=== PATIENT | female | born 1945 | race Caucasian/White ===

== ENCOUNTER 2018-08-30 13:25 | Inpatient (IN) | payer MEDICARE ==
[~2018-08-30] VITALS: Ht 162.6 cm; Wt 99.8 kg
--- NOTE | 2018-08-30 14:20 | RAD ---
EXAM: Chest, single view. HISTORY: Slurred speech. COMPARISON: None. FINDINGS: A frontal view of the chest is obtained. There is no infiltrate, pleural effusion or pneumothorax. The cardiac silhouette is normal in size for portable technique. IMPRESSION: No acute pulmonary finding. Electronically signed by: Trice Ruvalcaba MD (08/30/2018 2:17 PM) [id number]
--- NOTE | 2018-08-30 14:28 | RAD ---
CT CODE STROKE HEAD WO dated 08/30/2018 1:51 PM Indication: Slurred speech, possible CVA code stroke. Comparison: No comparison is available. Technique: Contiguous axial imaging of the head was performed from skull base to vertex. One or more of the following individualized dose reduction techniques were utilized for this examination: 1. Automated exposure control 2. Adjustment of the mA and/or kV according to patient size 3. Use of iterative reconstruction technique Findings: Ventricles and sulci are mildly prominent for age. No midline shift or mass effect. Moderate patchy low density in the deep/subcortical periventricular white matter. No hemorrhage or extra-axial collection. Posterior fossa and brainstem unremarkable. No hyperdense vessels. Visualized paranasal sinuses and mastoid air cells are clear. No apparent calvarial abnormality. IMPRESSION: 1. No evidence of acute cranial hemorrhage or mass. 2. Moderate patchy low density in the deep/subcortical periventricular white matter, nonspecific but likely related to chronic small vessel ischemic disease. Superimposed acute on chronic ischemia cannot be excluded based on this exam. If there is persistent clinical concern for evolving CVA, MRI would better evaluate. 3. Mild atrophy for age. Results discussed with ER physician at approximately to 2:12 PM on the date of exam. Electronically signed by: Klaus Smith MD (08/30/2018 2:26 PM) [id number]
[2018-08-30] MEDS ORDERED: NALOXONE 2 MG in IV DEXTROSE 5% 500 ML IV ONE (14:45)
[2018-08-30] MEDS ORDERED: NALOXONE 0.4 MG/ML VIAL. IV ONE (14:45)
[2018-08-30] MEDS ORDERED: ONDANSETRON PF 4 MG/2 ML VIAL. IV PRN (14:45)
--- NOTE | 2018-08-30 14:52 | PHYS DOC ---
Past Medical History Past Medical History: Hypertension Past Surgical History: Knee Replacement, Tonsillectomy Additional Past Surgical Histo: left knee Alcohol Use: Rarely Drug Use: None Adult General Chief Complaint Chief Complaint: NEURO SYMPTOMS/DEFICITS HPI HPI 72-year-old female who's had a recent hip replacement surgery presents approximately 30 minutes after the development of left-sided facial droop, slurred speech and confusion. Family states that they were out shopping and the legends when she suddenly developed incomprehensible speech, trouble unbuckling her seatbelt and difficulty getting in and out of the car. Family states that this is very unusual for her she's never had anything like this in the past. On arrival to the emergency Department family states that her symptoms had markedly improved. Patient does admit to a mild headache but otherwise has not been feeling ill. She's not had any fever chills or sweats. No upper respiratory type symptoms.[] Review of Systems Review of Systems Constitutional: Denies fever or chills [] Eyes: Denies change in visual acuity, redness, or eye pain [] HENT: Denies nasal congestion or sore throat [] Respiratory: Denies cough or shortness of breath [] Cardiovascular: No additional information not addressed in HPI [] GI: Denies abdominal pain, nausea, vomiting, bloody stools or diarrhea [] : Denies dysuria or hematuria [] Musculoskeletal: Denies back pain or joint pain [] Integument: Denies rash or skin lesions [] Neurologic: Per history of present illness[] Endocrine: Denies polyuria or polydipsia [] All other systems were reviewed and found to be within normal limits, except as documented in this note. Current Medications Current Medications Allergies Allergies Allergies Coded Allergies Type Severity Reaction Last Updated Verified No Known Drug Allergies 08/30/18 No Physical Exam Physical Exam Constitutional: Well developed, well nourished, no acute distress, non-toxic appearance. [] HENT: Normocephalic, atraumatic, bilateral external ears normal, oropharynx moist, no oral exudates, nose normal. [] Eyes: PERRLA, EOMI, conjunctiva normal, no discharge. [] Neck: Normal range of motion, no tenderness, supple, no stridor. [] Cardiovascular:Heart rate regular rhythm, no murmur [] Lungs & Thorax: Bilateral breath sounds clear to auscultation [] Abdomen: Bowel sounds normal, soft, no tenderness, no masses, no pulsatile masses. [] Skin: Warm, dry, no erythema, no rash. [] Back: No tenderness, no CVA tenderness. [] Extremities: No tenderness, no cyanosis, no clubbing, ROM intact, no edema. [] Neurologic: Alert and oriented X 3, normal motor function, normal sensory function, no focal deficits noted. [] Psychologic: Affect normal, judgement normal, mood normal. NIH stroke scale equals 1 for very mild facial asymmetry[] Current Patient Data Vital Signs Vital Signs Date Time Temp Pulse Resp B/P (MAP) Pulse Ox O2 Delivery O2 Flow Rate FiO2 08/30/18 13:40 97.6 69 18 188/99 (128) 97 Room Air 97.6 Lab Values Laboratory Tests Test 08/30/18 13:49 08/30/18 14:30 Glucose (Fingerstick) 96 mg/dL (70-99) White Blood Count 7.7 x10^3/uL (4.0-11.0) Red Blood Count 4.13 x10^6/uL (3.50-5.40) Hemoglobin 12.5 g/dL (12.0-15.5) Hematocrit 37.9 % (36.0-47.0) Mean Corpuscular Volume 92 fL (79-100) Mean Corpuscular Hemoglobin 30 pg (25-35) Mean Corpuscular Hemoglobin Concent 33 g/dL (31-37) Red Cell Distribution Width 14.0 % (11.5-14.5) Platelet Count 331 x10^3/uL (140-400) Prothrombin Time 15.8 SEC (11.7-14.0) H Prothrombin Time INR 1.3 (0.8-1.1) H PTT 32 SEC (24-38) Sodium Level 138 mmol/L (136-145) Potassium Level 3.4 mmol/L (3.5-5.1) L Chloride Level 98 mmol/L (98-107) Carbon Dioxide Level 26 mmol/L (21-32) Anion Gap 14 (6-14) Blood Urea Nitrogen 17 mg/dL (7-20) Creatinine 1.1 mg/dL (0.6-1.0) H Estimated GFR (Cockcroft-Gault) 49.1 Glucose Level 101 mg/dL (70-99) H Calcium Level 9.8 mg/dL (8.5-10.1) Triglycerides Level 133 mg/dL (0-150) Cholesterol Level 214 mg/dL (0-200) H LDL Cholesterol, Calculated 136 mg/dL (0-100) H VLDL Cholesterol, Calculated 27 mg/dL (0-40) Non-HDL Cholesterol Calculated 163 mg/dL (0-129) H HDL Cholesterol 51 mg/dL (40-60) Cholesterol/HDL Ratio 4.2 Laboratory Tests 08/30/18 14:30 Laboratory Tests 08/30/18 14:30 EKG EKG [EKG: Normal sinus rhythm rate of [address]-T changes] Radiology/Procedures Radiology/Procedures []PROCEDURE: PORTABLE CHEST 1V EXAM: Chest, single view. HISTORY: Slurred speech. COMPARISON: None. FINDINGS: A frontal view of the chest is obtained. There is no infiltrate, pleural effusion or pneumothorax. The cardiac silhouette is normal in size for portable technique. IMPRESSION: No acute pulmonary finding. Impressions: PROCEDURE: CT CODE STROKE HEAD WO CT CODE STROKE HEAD WO dated 08/30/2018 1:51 PM Indication: Slurred speech, possible CVA code stroke. Comparison: No comparison is available. Technique: Contiguous axial imaging of the head was performed from skull base to vertex. One or more of the following individualized dose reduction techniques were utilized for this examination: 1. Automated exposure control 2. Adjustment of the mA and/or kV according to patient size 3. Use of iterative reconstruction technique Findings: Ventricles and sulci are mildly prominent for age. No midline shift or mass effect. Moderate patchy low density in the deep/subcortical periventricular white matter. No hemorrhage or extra-axial collection. Posterior fossa and brainstem unremarkable. No hyperdense vessels. Visualized paranasal sinuses and mastoid air cells are clear. No apparent calvarial abnormality. IMPRESSION: 1. No evidence of acute cranial hemorrhage or mass. 2. Moderate patchy low density in the deep/subcortical periventricular white matter, nonspecific but likely related to chronic small vessel ischemic disease. Superimposed acute on chronic ischemia cannot be excluded based on this exam. If there is persistent clinical concern for evolving CVA, MRI would better evaluate. 3. Mild atrophy for age. Course & Med Decision Making Course & Med Decision Making Pertinent Labs and Imaging studies reviewed. (See chart for details) [ED course: Evaluation reveals a 72-year-old female with a likely TIA. Her symptoms had essentially resolved however given the abrupt onset and the severity of her symptoms I feel is best for the patient to be admitted for further workup. I spoke with the hospitalist agreed. We will consult neurology as well with the patient's in the hospital.] Dragon Disclaimer Dragon Disclaimer This electronic medical record was generated, in whole or in part, using a voice recognition dictation system. Departure Departure Impression: Primary Impression: Transient ischemic attack (TIA) Disposition: 09 ADMITTED INPATIENT Admitting Physician: Faith Hughes Condition: STABLE Referrals: UNKNOWN PCP NAME (PCP) SAUNDRA ROBERT DO Aug 30, 2018 14:52
[2018-08-30] MEDS ORDERED: LABETALOL 20 MG/4 ML DISP.SYRIN. IVP PRN (15:00)
[2018-08-30] MEDS ORDERED: ACETAMINOPHEN 500 MG TABLET PO PRN (15:00)
[2018-08-30] MEDS ORDERED: ASPIRIN CHEWABLE 81 MG TABLET. PO ONE (15:00)
[2018-08-30] MEDS ORDERED: traMADol 50 MG TABLET PO PRN (15:00)
--- NOTE | 2018-08-30 15:00 | PDOC1 ---
History and Physical Date of Admission Date of Admission DATE: 08/30/18 TIME: 14:55 Identification/Chief Complaint Chief Complaint confused, slurred, lasted 15 mins Source Source: Caregiver, Chart review, Patient History of Present Illness History of Present Illness 72 white F, shopping at [employer], then dtr noticed, confusion, transient slurred , maybe a slight droop/uneven smile, She could not figure out how to get in car or fasten seatbelt, By the time arrival, sxs resolving, NIH 1,. CT head and labs ok, VS high side bp, takes meds at home along with synthroid NO vices, NKDA Only sx is hip sx took asa x 30 days, none now Admitted for tIA Essential tremors takes propanolol BID Hx CVA in parents Past Medical History Cardiovascular: HTN, Hyperlipidemia CENTRAL NERVOUS SYSTEM: Other (ETs) Endocrine: Hypothyroidism Past Surgical History Past Surgical History: Total hip replacement Family History Family History: Other (CVA) Social History Smoke: No ALCOHOL: none Drugs: None Current Problem List Problem List Problems Medical Problems: (1) Transient ischemic attack (TIA) Status: Acute Current Medications Current Medications Current Medications Naloxone HCl (Narcan) 2 mg 1X ONCE IV ; Start 08/30/18 at 14:45; Stop 08/30/18 at 14:53; Status DC Naloxone HCl 2 mg/ Dextrose 502 ml @ 0 mls/hr 1X ONCE IV ; Start 08/30/18 at 14 :45; Stop 08/30/18 at 14:53; Status DC Ondansetron HCl (Zofran) 4 mg PRN Q8HRS PRN IV NAUSEA/VOMITING; Start 08/30/18 at 14:45; Stop 08/31/18 at 14:44 Acetaminophen (Tylenol) 500 mg PRN Q6HRS PRN PO MILD PAIN / TEMP; Start at 15:00; Status UNV Aspirin (Ecotrin) 325 mg DAILYWBKFT PO ; Start 08/31/18 at 08:00; Status UNV Aspirin (Children'S Aspirin) 324 mg 1X ONCE PO ; Start 08/30/18 at 15:00; Stop 08/30/18 at 15:01; Status UNV Labetalol HCl (Normodyne Iv Push) 10 mg PRN Q2HR PRN IVP HYPERTENSION, SEE COMMENTS; Start 08/30/18 at 15:00; Status UNV Losartan Potassium (Cozaar) 100 mg DAILY PO ; Start 08/31/18 at 09:00; Status UNV Celecoxib (CeleBREX) 200 mg DAILY PO ; Start 08/31/18 at 09:00; Status UNV Propranolol HCl (Inderal) 40 mg BID PO ; Start 08/30/18 at 21:00; Status UNV Tramadol HCl (Ultram) 50 mg PRN Q6HRS PRN PO PAIN; Start 08/30/18 at 15:00; Status UNV Levothyroxine Sodium (Synthroid) 125 mcg DAILY06 PO ; Start 08/31/18 at 06:00; Status UNV Allergies Allergies: Coded Allergies: No Known Drug Allergies (Unverified , 08/30/18) ROS Review of System neg 14 pt - all else per HPI Physical Exam General: Alert, Oriented X3, Cooperative, No acute distress, Other (some chronic essential tremors visible, left arm) HEENT: Atraumatic, PERRLA Lungs: Clear to auscultation, Normal air movement Heart: S1S2, RRR, no gallops, no murmurs Cardiovascular: S1 Breasts: Normal, Rt breast nml w/o mass, Lt breast nml w/o mass, Nipples normal Abdomen: Normal bowel sounds, Soft, No tenderness, No hepatosplenomegaly, No masses Rectal Exam: not examined PELVIC: Nml ext genitalia Extremities: No clubbing, No cyanosis, No edema, Normal pulses, No tenderness/ swelling Skin: No rashes, No breakdown, No significant lesion Neuro: Normal gait, Normal speech, Strength at 5/5 X4 ext, Normal tone, Sensation intact, Cranial nerves 3-12 NL, Reflexes 2+ Psych/Mental Status: Mental status NL, Mood NL Vitals Vitals Vital Signs Date Time Temp Pulse Resp B/P (MAP) Pulse Ox O2 Delivery O2 Flow Rate FiO2 08/30/18 13:40 97.6 69 18 188/99 (128) 97 Room Air 97.6 Labs Labs Laboratory Tests Test 08/30/18 13:49 Glucose (Fingerstick) 96 mg/dL (70-99) Laboratory Tests Test 08/30/18 13:49 Glucose (Fingerstick) 96 mg/dL (70-99) VTE Prophylaxis Ordered VTE Prophylaxis Devices: Yes VTE Pharmacological Prophylaxi: Yes Assessment/Plan Assessment/Plan Looks like TIA based on symtomatology and manifestation, NIH 1, neuro exam almost normal BP high. See below: A/P: TIA Accel HTN Hypothyrodism, chronic ETs PLAN: NEuro, consult MRI brain Check lipids Home meds reconciled Labetolol prn Allow permissive hTN Seen at ER dw family FULL CODE ASA now then daily JOLIE MICHELE MD Aug 30, 2018 15:00
[2018-08-30 15:06] LABS: HEMATOCRIT 37.9 % (36.0-47.0); HEMOGLOBIN 12.5 g/dL (12.0-15.5); RED BLOOD COUNT 4.13 x10^6/uL (3.50-5.40); WHITE BLOOD COUNT 7.7 x10^3/uL (4.0-11.0)
[2018-08-30 15:15] LABS: PROTHROMBIN TIME PATIENT 15.8 SEC (11.7-14.0)
[2018-08-30 15:17] LABS: CALCIUM 9.8 mg/dL (8.5-10.1); CREATININE 1.1 mg/dL (0.6-1.0); GFR 49.1; POTASSIUM 3.4 mmol/L (3.5-5.1)
[2018-08-30 15:22] LABS: CHOLESTEROL/HDL RATIO 4.2
--- NOTE | 2018-08-30 16:11 | NUR ---
completed NIH at bedside with Hannah YO Addendum: 08/30/18 at 1629 by JESUS GUSTAFSON RN Amended: Links added.
[2018-08-30 17:00] VITALS: BP 176/74
--- NOTE | 2018-08-30 17:30 | RAD ---
EXAM: Brain MRI without contrast. HISTORY: Slurred speech. Confusion. TECHNIQUE: Multiplanar, multisequence magnetic resonance imaging of the brain was performed without contrast. COMPARISON: CT obtained on the same date. FINDINGS: There is no restricted diffusion to suggest acute or subacute infarction. There is no susceptibility effect to suggest hemorrhage. There is no mass effect or midline shift. There is no hydrocephalus. There are extensive scattered focal and confluent areas of signal change throughout the cerebral white matter, most commonly due to chronic small vessel disease. There is cerebral volume loss. There is paranasal sinus mucosal thickening and there are multiple small maxillary sinus mucous retention cysts. There is a tiny amount of fluid within mastoid air cells. There are normal flow voids within the cerebral vessels. No calvarial lesion is seen. IMPRESSION: 1. No acute intracranial finding. 2. Extensive areas of signal change throughout the cerebral white matter, a nonspecific finding most commonly due to chronic small vessel disease in patients of this age. 3. Cerebral volume loss. Electronically signed by: Trice Ruvalcaba MD (08/30/2018 5:27 PM) [id number]
[2018-08-30 19:19] VITALS: BP 142/73
--- NOTE | 2018-08-30 19:42 | PDOC2 ---
NEUROLOGY CONSULT Date of Admission Date of Admission DATE: 08/30/18 TIME: 19:37 Reason for Consult Reason for Consult: IMPRESSION: CVA syndrome. TIA. Cognitive function impairment. left side facial drooping. Slurred speech. Confusion. UTI. Severe thoracic esophageal stricture, neoplastic? Proteinuria. DM. HTN. Hypothyroidism. Cardiomegaly. Emphysema. Obesity. RECOMMENDATIONS/PLAN: HISTORY OF THE PRESENT ILLNESS: 72 white F, shopping at [employer], then dtr noticed, confusion, transient slurred , maybe a slight droop/uneven smile, She could not figure out how to get in car or fasten seatbelt, By the time arrival, sxs resolving, NIH 1,. CT head and labs ok, VS high side bp, takes meds at home along with synthroid NO vices, NKDA Only sx is hip sx took asa x 30 days, none now Admitted for tIA Essential tremors takes propanolol BID Hx CVA in parents Past Medical History Cardiovascular: HTN, Hyperlipidemia CENTRAL NERVOUS SYSTEM: Other (ETs) Endocrine: Hypothyroidism Past Surgical History Past Surgical History: Total hip replacement Family History Family History: Other (CVA) Social History Smoke: No ALCOHOL: none Drugs: None Current Problem List Problem List Problems Medical Problems: (1) Transient ischemic attack (TIA) Status: Acute PAST MEDICAL HISTORY: Please see above. PAST SURGERY HISTORY: Pacemaker Placement, S/P CABG, Tonsillectomy, Appendectomy , Cholecystectomy, Hysterectomy, Hernia Repair, Neck, Shoulder, Knee surgery, No major surgery recently. ALLERGY: NKDA Unknown MEDICATIONS: Refer to [facility] FAMILY HISTORY: HTN, HLD, DM, CAD, PD, Dementia, Non contributory. SOCIAL HISTORY: Lives alone. Lives in senior care. Denies smoking, drinking, and illicit drug use. He She smokes pack of cigarettes a day for years. He She drinks OZ alcohol a day for years. REVIEW OF SYSTEMS: Constitutional: No malnutrition, weight loss, cachexia. Head: No traumatic brain or head injury. Skin: No edema, or rash. Ear: No infection, tinnitus. Eyes: No vision loss or color blindness. Nose: No bleeding or purulent discharges. Hearing: No hearing decrease. Neck: No injury. Breast: No history of cancer, masses,or discharges. Cardiac: No VT, arrhythmia,claudication, CAD, s/p CABG, AFib, Pacemaker Placement, HTN, HLD. Pulmonary: No pneumonia, COPD. GI: No GI ulcer, GI bleeding, GERD. Urinary/genital: No dysuria, hematuria, incontinence, urinary retention, UTI. Endocrinologic: No cousin face, craniofacial dysmorphism, polydactyly, goiter, Diabetes Mellitus, hypothyroidism, obesity, morbid obesity. Skeletomuscular: No muscular atrophy, deformity, Generalized weakness. Neurological: see HP. Psychiatric: Denies drug use/abuse. Otherwise, not [id number] review of systems. PHYSICAL EXAMINATION: General appearance is in no acute distress. HEENT: Normocephalic and nontraumatic. Eyes, nose, ears, and throat are unremarkable. Neck is supple. No lymphadenopathy. No bruits are heard over the carotid artery. No crepitus. Cardiovascular: S1, S2, regular rate and rhythm. Pulmonary: Clear to auscultation bilaterally. Abdomen: Bowel sounds are positive. Abdomen is soft, nontender, and nondistended. Extremities: No rash, lesions, or edema. No restriction of range of motion NEUROLOGICAL EXAMINATION: Alert Oriented to time, place and person. PERRL. EOMI. CN: no focal findings. Muscle tone: within normal. Muscle strength: 5 DTR: 2 Plantar reflex: Flexor/Neutral response bilaterally Gait: not examined in bed. At baseline normal. Sensory exam: no abnormal findings. No cerebellar signs elicited. F-T-N test accurate. Current Medications Current Medications Current Medications Naloxone HCl (Narcan) 2 mg 1X ONCE IV ; Start 08/30/18 at 14:45; Stop 08/30/18 at 14:53; Status DC Naloxone HCl 2 mg/ Dextrose 502 ml @ 0 mls/hr 1X ONCE IV ; Start 08/30/18 at 14 :45; Stop 08/30/18 at 14:53; Status DC Ondansetron HCl (Zofran) 4 mg PRN Q8HRS PRN IV NAUSEA/VOMITING; Start 08/30/18 at 14:45; Stop 08/31/18 at 14:44 Acetaminophen (Tylenol) 500 mg PRN Q6HRS PRN PO MILD PAIN / TEMP; Start at 15:00 Aspirin (Ecotrin) 325 mg DAILYWBKFT PO ; Start 08/31/18 at 08:00 Aspirin (Children'S Aspirin) 324 mg 1X ONCE PO Last administered on 08/30/18at 15:00; Start 08/30/18 at 15:00; Stop 08/30/18 at 15:01; Status DC Labetalol HCl (Normodyne Iv Push) 10 mg PRN Q2HR PRN IVP HYPERTENSION, SEE COMMENTS; Start 08/30/18 at 15:00 Losartan Potassium (Cozaar) 100 mg DAILY PO ; Start 08/31/18 at 09:00 Celecoxib (CeleBREX) 200 mg DAILY PO ; Start 08/31/18 at 09:00 Propranolol HCl (Inderal) 40 mg BID PO ; Start 08/30/18 at 21:00 Tramadol HCl (Ultram) 50 mg PRN Q6HRS PRN PO PAIN; Start 08/30/18 at 15:00 Levothyroxine Sodium (Synthroid) 125 mcg DAILY06 PO ; Start 08/31/18 at 06:00 Allergies Allergies: Allergies Coded Allergies Type Severity Reaction Last Updated Verified [id number] Reductase Inhibitor Adverse Reaction Severe Muscle Pain Yes ROS Review of System The patient denies any associated fevers, chills, headache, ear pain, rhinorrhea , sore throat, stiff neck, productive cough, chest pain, shortness of breath, back or flank pain, abdominal pain, nausea, vomiting, diarrhea, constipation, dysuria, rash, numbness, weakness, tingling, incontinence, difficulty ambulating, or diaphoresis. Physical Exam Physical Exam General: Well developed, well nourished, no acute distress, well appearing HEENT: Pupils equally round and reactive to light, EOMI, no discharge, normal conjunctiva Neck: Supple, no nuchal rigidity, no JVD, trachea midline, no tenderness Cardiac: RRR, no murmurs, no gallops, no rubs Chest/Lungs: CTAB, no wheeze, no rhonchi, no crackles Abdomen: soft, non-distended, no guarding, no peritoneal signs, non-tender Back: No tenderness Extremities: no edema, pulses intact, non-tender,capillary refill <3 sec bilateral upper and lower extremities, Neuro: Alert and oriented x 4, no focal deficits, normal speech Vitals Vitals: Vital Signs Date Time Temp Pulse Resp B/P (MAP) Pulse Ox O2 Delivery O2 Flow Rate FiO2 08/30/18 17:00 97.8 69 16 176/74 (108) 96 Room Air 97.8 Labs Labs Laboratory Tests Test 08/30/18 13:49 08/30/18 14:30 Glucose (Fingerstick) 96 mg/dL (70-99) White Blood Count 7.7 x10^3/uL (4.0-11.0) Red Blood Count 4.13 x10^6/uL (3.50-5.40) Hemoglobin 12.5 g/dL (12.0-15.5) Hematocrit 37.9 % (36.0-47.0) Mean Corpuscular Volume 92 fL (79-100) Mean Corpuscular Hemoglobin 30 pg (25-35) Mean Corpuscular Hemoglobin Concent 33 g/dL (31-37) Red Cell Distribution Width 14.0 % (11.5-14.5) Platelet Count 331 x10^3/uL (140-400) Prothrombin Time 15.8 SEC (11.7-14.0) Prothromb Time International Ratio 1.3 (0.8-1.1) Activated Partial Thromboplast Time 32 SEC (24-38) Sodium Level 138 mmol/L (136-145) Potassium Level 3.4 mmol/L (3.5-5.1) Chloride Level 98 mmol/L (98-107) Carbon Dioxide Level 26 mmol/L (21-32) Anion Gap 14 (6-14) Blood Urea Nitrogen 17 mg/dL (7-20) Creatinine 1.1 mg/dL (0.6-1.0) Estimated GFR (Cockcroft-Gault) 49.1 Glucose Level 101 mg/dL (70-99) Calcium Level 9.8 mg/dL (8.5-10.1) Triglycerides Level 133 mg/dL (0-150) Cholesterol Level 214 mg/dL (0-200) LDL Cholesterol, Calculated 136 mg/dL (0-100) VLDL Cholesterol, Calculated 27 mg/dL (0-40) Non-HDL Cholesterol Calculated 163 mg/dL (0-129) HDL Cholesterol 51 mg/dL (40-60) Cholesterol/HDL Ratio 4.2 Laboratory Tests Test 08/30/18 13:49 08/30/18 14:30 Glucose (Fingerstick) 96 mg/dL (70-99) White Blood Count 7.7 x10^3/uL (4.0-11.0) Red Blood Count 4.13 x10^6/uL (3.50-5.40) Hemoglobin 12.5 g/dL (12.0-15.5) Hematocrit 37.9 % (36.0-47.0) Mean Corpuscular Volume 92 fL (79-100) Mean Corpuscular Hemoglobin 30 pg (25-35) Mean Corpuscular Hemoglobin Concent 33 g/dL (31-37) Red Cell Distribution Width 14.0 % (11.5-14.5) Platelet Count 331 x10^3/uL (140-400) Prothrombin Time 15.8 SEC (11.7-14.0) Prothromb Time International Ratio 1.3 (0.8-1.1) Activated Partial Thromboplast Time 32 SEC (24-38) Sodium Level 138 mmol/L (136-145) Potassium Level 3.4 mmol/L (3.5-5.1) Chloride Level 98 mmol/L (98-107) Carbon Dioxide Level 26 mmol/L (21-32) Anion Gap 14 (6-14) Blood Urea Nitrogen 17 mg/dL (7-20) Creatinine 1.1 mg/dL (0.6-1.0) Estimated GFR (Cockcroft-Gault) 49.1 Glucose Level 101 mg/dL (70-99) Calcium Level 9.8 mg/dL (8.5-10.1) Triglycerides Level 133 mg/dL (0-150) Cholesterol Level 214 mg/dL (0-200) LDL Cholesterol, Calculated 136 mg/dL (0-100) VLDL Cholesterol, Calculated 27 mg/dL (0-40) Non-HDL Cholesterol Calculated 163 mg/dL (0-129) HDL Cholesterol 51 mg/dL (40-60) Cholesterol/HDL Ratio 4.2 EZEQUIEL REAVES MD Aug 30, 2018 19:42
--- NOTE | 2018-08-30 20:00 | PDOC2 ---
NEUROLOGY CONSULT Date of Admission Date of Admission DATE: 08/30/18 TIME: 19:47 Reason for Consult Reason for Consult: CVA syndrome. Coded stroke in ER. TIA. Cognitive function impairment. Left side facial drooping. Slurred speech. Confusion. HTN. UTI. Obesity. No evidence of acute CVA this time. RECOMMENDATIONS/PLAN: ASA daily. Lad: see orders. EEG as out patient. Carotid A US + Doppler. Echo + Bubble study. Treat medical diseases. HISTORY OF THE PRESENT ILLNESS: 72-y-old female patient was shopping at [employer], and her daughter noted that she had slurred speech with confusion, her left side of face was drooping but patient stated she had no recognition. She was thought to have a stroke. Her was brought to the ER of [facility] within 3 hours and her initial HCT was unrevealing. MRI showed no acute CVA. Her symptoms resolved after3 hours. Past Medical History Cardiovascular: HTN, Hyperlipidemia CENTRAL NERVOUS SYSTEM: Other (ETs) Endocrine: Hypothyroidism Past Surgical History Total hip replacement Family History Non contributory. . ALLERGY: Unknown MEDICATIONS: Refer to MAR SOCIAL HISTORY: Lives at home. Denies current smoking, drinking, and illicit drug use. REVIEW OF SYSTEMS: Constitutional: Obesity.. Head: No traumatic brain or head injury. Skin: No edema, or rash. Ear: No infection. Eyes: No vision loss or color blindness. Nose: No bleeding or purulent discharges. Hearing: Hearing decrease. Neck: No injury. Breast: No history of cancer, masses,or discharges. Cardiac: HTN. Pulmonary: No COPD. GI: No GI ulcer, GI bleeding. Urinary/genital: UTI. Endocrinologic: No cousin face, craniofacial dysmorphism, polydactyly. Skeletomuscular: No muscular atrophy. Neurological: see HP. Psychiatric: Denies drug use/abuse. Otherwise, not [id number] review of systems. PHYSICAL EXAMINATION: General appearance is in subacute distress. HEENT: Normocephalic and nontraumatic. Eyes, nose, ears, and throat are unremarkable. Neck is supple. No lymphadenopathy. No crepitus. Cardiovascular: S1, S2, regular rate and rhythm. Pulmonary: Clear to auscultation bilaterally. Abdomen: Bowel sounds are positive. Abdomen is soft, nontender, and nondistended. Extremities: No rash, lesions, or edema. No restriction of range of motion NEUROLOGICAL EXAMINATION: Alert Oriented to time, place and person. PERRL. EOMI. CN: no focal findings. Muscle tone: within normal. Muscle strength: 5 DTR: 2 Plantar reflex: Neutral response bilaterally Gait: not examined in bed. Sensory exam: no abnormal findings. No cerebellar signs elicited. F-T-N test accurate. Current Medications Current Medications Current Medications Naloxone HCl (Narcan) 2 mg 1X ONCE IV ; Start 08/30/18 at 14:45; Stop 08/30/18 at 14:53; Status DC Naloxone HCl 2 mg/ Dextrose 502 ml @ 0 mls/hr 1X ONCE IV ; Start 08/30/18 at 14 :45; Stop 08/30/18 at 14:53; Status DC Ondansetron HCl (Zofran) 4 mg PRN Q8HRS PRN IV NAUSEA/VOMITING; Start 08/30/18 at 14:45; Stop 08/31/18 at 14:44 Acetaminophen (Tylenol) 500 mg PRN Q6HRS PRN PO MILD PAIN / TEMP; Start at 15:00 Aspirin (Ecotrin) 325 mg DAILYWBKFT PO ; Start 08/31/18 at 08:00 Aspirin (Children'S Aspirin) 324 mg 1X ONCE PO Last administered on 08/30/18at 15:00; Start 08/30/18 at 15:00; Stop 08/30/18 at 15:01; Status DC Labetalol HCl (Normodyne Iv Push) 10 mg PRN Q2HR PRN IVP HYPERTENSION, SEE COMMENTS; Start 08/30/18 at 15:00 Losartan Potassium (Cozaar) 100 mg DAILY PO ; Start 08/31/18 at 09:00 Celecoxib (CeleBREX) 200 mg DAILY PO ; Start 08/31/18 at 09:00 Propranolol HCl (Inderal) 40 mg BID PO ; Start 08/30/18 at 21:00 Tramadol HCl (Ultram) 50 mg PRN Q6HRS PRN PO PAIN; Start 08/30/18 at 15:00 Levothyroxine Sodium (Synthroid) 125 mcg DAILY06 PO ; Start 08/31/18 at 06:00 Allergies Allergies: Allergies Coded Allergies Type Severity Reaction Last Updated Verified [id number]-Bji-Czx Reductase Inhibitor Adverse Reaction Severe Muscle Pain Yes ROS Review of System The patient denies any associated fevers, chills, headache, ear pain, rhinorrhea , sore throat, stiff neck, productive cough, chest pain, shortness of breath, back or flank pain, abdominal pain, nausea, vomiting, diarrhea, constipation, dysuria, rash, numbness, weakness, tingling, incontinence, difficulty ambulating, or diaphoresis. Physical Exam Physical Exam General: Well developed, well nourished, no acute distress, well appearing HEENT: Pupils equally round and reactive to light, EOMI, no discharge, normal conjunctiva Neck: Supple, no nuchal rigidity, no JVD, trachea midline, no tenderness Cardiac: RRR, no murmurs, no gallops, no rubs Chest/Lungs: CTAB, no wheeze, no rhonchi, no crackles Abdomen: soft, non-distended, no guarding, no peritoneal signs, non-tender Back: No tenderness Extremities: no edema, pulses intact, non-tender,capillary refill <3 sec bilateral upper and lower extremities, Neuro: Alert and oriented x 4, no focal deficits, normal speech Vitals Vitals: Vital Signs Date Time Temp Pulse Resp B/P (MAP) Pulse Ox O2 Delivery O2 Flow Rate FiO2 08/30/18 17:00 97.8 69 16 176/74 (108) 96 Room Air 97.8 Labs Labs Laboratory Tests Test 08/30/18 13:49 08/30/18 14:30 Glucose (Fingerstick) 96 mg/dL (70-99) White Blood Count 7.7 x10^3/uL (4.0-11.0) Red Blood Count 4.13 x10^6/uL (3.50-5.40) Hemoglobin 12.5 g/dL (12.0-15.5) Hematocrit 37.9 % (36.0-47.0) Mean Corpuscular Volume 92 fL (79-100) Mean Corpuscular Hemoglobin 30 pg (25-35) Mean Corpuscular Hemoglobin Concent 33 g/dL (31-37) Red Cell Distribution Width 14.0 % (11.5-14.5) Platelet Count 331 x10^3/uL (140-400) Prothrombin Time 15.8 SEC (11.7-14.0) Prothromb Time International Ratio 1.3 (0.8-1.1) Activated Partial Thromboplast Time 32 SEC (24-38) Sodium Level 138 mmol/L (136-145) Potassium Level 3.4 mmol/L (3.5-5.1) Chloride Level 98 mmol/L (98-107) Carbon Dioxide Level 26 mmol/L (21-32) Anion Gap 14 (6-14) Blood Urea Nitrogen 17 mg/dL (7-20) Creatinine 1.1 mg/dL (0.6-1.0) Estimated GFR (Cockcroft-Gault) 49.1 Glucose Level 101 mg/dL (70-99) Calcium Level 9.8 mg/dL (8.5-10.1) Triglycerides Level 133 mg/dL (0-150) Cholesterol Level 214 mg/dL (0-200) LDL Cholesterol, Calculated 136 mg/dL (0-100) VLDL Cholesterol, Calculated 27 mg/dL (0-40) Non-HDL Cholesterol Calculated 163 mg/dL (0-129) HDL Cholesterol 51 mg/dL (40-60) Cholesterol/HDL Ratio 4.2 Laboratory Tests Test 08/30/18 13:49 08/30/18 14:30 Glucose (Fingerstick) 96 mg/dL (70-99) White Blood Count 7.7 x10^3/uL (4.0-11.0) Red Blood Count 4.13 x10^6/uL (3.50-5.40) Hemoglobin 12.5 g/dL (12.0-15.5) Hematocrit 37.9 % (36.0-47.0) Mean Corpuscular Volume 92 fL (79-100) Mean Corpuscular Hemoglobin 30 pg (25-35) Mean Corpuscular Hemoglobin Concent 33 g/dL (31-37) Red Cell Distribution Width 14.0 % (11.5-14.5) Platelet Count 331 x10^3/uL (140-400) Prothrombin Time 15.8 SEC (11.7-14.0) Prothromb Time International Ratio 1.3 (0.8-1.1) Activated Partial Thromboplast Time 32 SEC (24-38) Sodium Level 138 mmol/L (136-145) Potassium Level 3.4 mmol/L (3.5-5.1) Chloride Level 98 mmol/L (98-107) Carbon Dioxide Level 26 mmol/L (21-32) Anion Gap 14 (6-14) Blood Urea Nitrogen 17 mg/dL (7-20) Creatinine 1.1 mg/dL (0.6-1.0) Estimated GFR (Cockcroft-Gault) 49.1 Glucose Level 101 mg/dL (70-99) Calcium Level 9.8 mg/dL (8.5-10.1) Triglycerides Level 133 mg/dL (0-150) Cholesterol Level 214 mg/dL (0-200) LDL Cholesterol, Calculated 136 mg/dL (0-100) VLDL Cholesterol, Calculated 27 mg/dL (0-40) Non-HDL Cholesterol Calculated 163 mg/dL (0-129) HDL Cholesterol 51 mg/dL (40-60) Cholesterol/HDL Ratio 4.2 EZEQUIEL REAVES MD Aug 30, 2018 20:00
[2018-08-30] MEDS: PROPRANOLOL 40 MG TABLET. PO SCH (20:51)
[2018-08-30 23:20] VITALS: BP 158/62
[2018-08-31] MEDS ORDERED: CELE200C PO (01:24)
[2018-08-31] MEDS ORDERED: PROP40TA PO (01:24)
[2018-08-31] MEDS ORDERED: LOSA100T14 PO (01:24)
[2018-08-31] MEDS ORDERED: LEVO125T5 PO (01:24)
[2018-08-31 03:00] VITALS: BP 178/81
[2018-08-31] MEDS ORDERED: LEVOTHYROXINE 125 MCG TABLET PO SCH (06:00)
[2018-08-31 07:00] VITALS: BP 147/83
[2018-08-31] MEDS ORDERED: ASPIRIN ENTERIC COATED 325 MG TABLET.DR. PO SCH (08:00)
[2018-08-31] MEDS ORDERED: LOSARTAN POTASSIUM 50 MG TABLET. PO SCH (09:00)
[2018-08-31] MEDS ORDERED: CELECOXIB 100 MG CAPSULE. PO SCH (09:00)
--- NOTE | 2018-08-31 09:31 | PDOC3 ---
Discharge Summary Visit Information Date of Admission: Aug 30, 2018 Date of Discharge: Aug 31, 2018 Admitting Diagnosis: TIA Final Diagnosis Problems Medical Problems: (1) Transient ischemic attack (TIA) Status: Acute Brief Hospital Course Allergies Allergies Coded Allergies Type Severity Reaction Last Updated Verified Nevqmdb-Pwv-Oaw Reductase Inhibitor Adverse Reaction Severe Muscle Pain Yes Vital Signs Vital Signs Date Time Temp Pulse Resp B/P (MAP) Pulse Ox O2 Delivery O2 Flow Rate FiO2 08/31/18 07:00 97.4 74 18 147/83 (104) 96 Room Air 97.4 Lab Results Laboratory Tests Test 08/30/18 13:49 08/30/18 14:30 Glucose (Fingerstick) 96 mg/dL (70-99) White Blood Count 7.7 x10^3/uL (4.0-11.0) Red Blood Count 4.13 x10^6/uL (3.50-5.40) Hemoglobin 12.5 g/dL (12.0-15.5) Hematocrit 37.9 % (36.0-47.0) Mean Corpuscular Volume 92 fL (79-100) Mean Corpuscular Hemoglobin 30 pg (25-35) Mean Corpuscular Hemoglobin Concent 33 g/dL (31-37) Red Cell Distribution Width 14.0 % (11.5-14.5) Platelet Count 331 x10^3/uL (140-400) Prothrombin Time 15.8 SEC (11.7-14.0) Prothromb Time International Ratio 1.3 (0.8-1.1) Activated Partial Thromboplast Time 32 SEC (24-38) Sodium Level 138 mmol/L (136-145) Potassium Level 3.4 mmol/L (3.5-5.1) Chloride Level 98 mmol/L (98-107) Carbon Dioxide Level 26 mmol/L (21-32) Anion Gap 14 (6-14) Blood Urea Nitrogen 17 mg/dL (7-20) Creatinine 1.1 mg/dL (0.6-1.0) Estimated GFR (Cockcroft-Gault) 49.1 Glucose Level 101 mg/dL (70-99) Calcium Level 9.8 mg/dL (8.5-10.1) Triglycerides Level 133 mg/dL (0-150) Cholesterol Level 214 mg/dL (0-200) LDL Cholesterol, Calculated 136 mg/dL (0-100) VLDL Cholesterol, Calculated 27 mg/dL (0-40) Non-HDL Cholesterol Calculated 163 mg/dL (0-129) HDL Cholesterol 51 mg/dL (40-60) Cholesterol/HDL Ratio 4.2 Vitamin B12 Level 393 pg/mL (247-911) Thyroid Stimulating Hormone (TSH) 1.354 uIU/mL (0.358-3.74) Laboratory Tests Test 08/30/18 13:49 08/30/18 14:30 Glucose (Fingerstick) 96 mg/dL (70-99) White Blood Count 7.7 x10^3/uL (4.0-11.0) Red Blood Count 4.13 x10^6/uL (3.50-5.40) Hemoglobin 12.5 g/dL (12.0-15.5) Hematocrit 37.9 % (36.0-47.0) Mean Corpuscular Volume 92 fL (79-100) Mean Corpuscular Hemoglobin 30 pg (25-35) Mean Corpuscular Hemoglobin Concent 33 g/dL (31-37) Red Cell Distribution Width 14.0 % (11.5-14.5) Platelet Count 331 x10^3/uL (140-400) Prothrombin Time 15.8 SEC (11.7-14.0) Prothromb Time International Ratio 1.3 (0.8-1.1) Activated Partial Thromboplast Time 32 SEC (24-38) Sodium Level 138 mmol/L (136-145) Potassium Level 3.4 mmol/L (3.5-5.1) Chloride Level 98 mmol/L (98-107) Carbon Dioxide Level 26 mmol/L (21-32) Anion Gap 14 (6-14) Blood Urea Nitrogen 17 mg/dL (7-20) Creatinine 1.1 mg/dL (0.6-1.0) Estimated GFR (Cockcroft-Gault) 49.1 Glucose Level 101 mg/dL (70-99) Calcium Level 9.8 mg/dL (8.5-10.1) Triglycerides Level 133 mg/dL (0-150) Cholesterol Level 214 mg/dL (0-200) LDL Cholesterol, Calculated 136 mg/dL (0-100) VLDL Cholesterol, Calculated 27 mg/dL (0-40) Non-HDL Cholesterol Calculated 163 mg/dL (0-129) HDL Cholesterol 51 mg/dL (40-60) Cholesterol/HDL Ratio 4.2 Vitamin B12 Level 393 pg/mL (247-911) Thyroid Stimulating Hormone (TSH) 1.354 uIU/mL (0.358-3.74) Brief Hospital Course Ms. Rowan is a 72 old female who was admitted with TIA symptoms. Patient was admitted for further evaluation and treatment. The patient did not percent evidence of acute central etiology for her symptoms that brought her into the hospital. She is back to baseline, she continues to have her essential tremors but they are at baseline according to patient. I discussed the results of her lipid panel and encouraged her to follow up with her primary care physician. Statin therapy has given her problems in the past reason why we are not starting statin therapy at this moment. Advised to take 81 262 mg of aspirin daily. Signs and symptoms of alarm were discussed prior to discharge CONCERNS WERE ADDRESSED TO THE BEST OF MY ABILITIES. PATIENT IS IN GOOD SPIRITS TO BE DISMISSED HOME. PHYSICAL EXAM: Lungs clear to auscultation bilaterally with good inspiratory effort and cardiovascular exam S1-S2 regular rhythm no murmurs calls or rubs Discharge Information Condition at Discharge: Improved Follow Up: Weeks Disposition/Orders: D/C to Home Scheduled Celecoxib (Celebrex) 200 Mg Capsule, 200 MG PO DAILY for pain, arthritis for 30 Days, #30 Ref 0 (Reported) Entered as Reported by: BAYRON OQUENDO on 08/31/18123 Last Action: New Order on 08/31/18123 by BAYRON OQUENDO Levothyroxine Sodium (Levothyroxine Sodium) 125 Mcg Tablet, 125 MCG PO DAILYAC for THYROID SUPPLEMENT, #30 Ref 0 (Reported) Entered as Reported by: BAYRON OQUENDO on 08/31/18123 Last Action: New Order on 08/31/18123 by BAYRON OQUENDO Losartan Potassium (Losartan Potassium) 100 Mg Tablet, 100 MG PO DAILY for HYPERTENSION, (Reported) Entered as Reported by: BAYRON OQUENDO on 08/31/18123 Last Action: New Order on 08/31/18123 by BAYRON OQUENDO Propranolol Hcl (Propranolol Hcl) 40 Mg Tablet, 40 MG PO BID for hypertension, ( Reported) Entered as Reported by: BAYRON OQUENDO on 08/31/18123 Last Action: New Order on 08/31/18123 by QUINN JONES MD Aug 31, 2018 09:31
[2018-08-31] MEDS: PROPRANOLOL 40 MG TABLET. PO SCH (09:32)
--- NOTE | 2018-08-31 09:41 | EKG ---
[facility] [address] [place] [address] Test Date: 2018-08-30 Test Time: 14:44:11 Pat Name: YEFRI JASSO Department: Room: [facility] Gender: Senior Accounting Manager: : 1945 Requested By: SAUNDRA ROBERT Order Number: [id number] Reading MD: Pedro Santos MD Measurements Intervals [place] Rate: P: CT: QRS: QRSD: T: QT: QTc: Interpretive Statements SR Electronically Signed On 09-07-2018 23:19:04 CDT by Pedro Santos MD
[2018-08-31] MEDS ORDERED: CYAN10005 PO (09:42)
[2018-08-31] MEDS ORDERED: CYANOCOBALAMIN (VITAMIN B-12) 1,000 MCG/ML VIAL IM ONE (09:45)
[2018-08-31 11:00] VITALS: BP 157/67
--- NOTE | 2018-08-31 13:22 | NUR ---
Discharge Note: YEFRI JASSO [address] [place] [address] Discharge instructions and discharge home medications reviewed with Patient and a copy given. All questions have been answered and understanding verbalized. The following instructions and handouts were given: Diet, activity, medication list and follow up instructions provided to patient and family. Discontinued lines and drains: Peripheral IV discontinued and catheter intact. Patient discharged to Home or Self Care with Family Member via Wheelchair
== END 2018-08-31 15:01 | disposition home or self-care (01) | DRG 69 ==
LOC: ER 13:25 → 6 SOUTH 14:44 → OBSVTOIN 08-31 08:23
PROVIDERS: ADMIT Internal Medicine; ATTEND Internal Medicine
DX: G45.9 Transient cerebral ischemic attack, unspecified (principal); N39.0 Urinary tract infection, site not specified; Z96.649 Presence of unspecified artificial hip joint; E78.5 Hyperlipidemia, unspecified; E66.9 Obesity, unspecified; E11.9 Type 2 diabetes mellitus without complications; J43.9 Emphysema, unspecified; Z96.659 Presence of unspecified artificial knee joint; R47.81 Slurred speech; Z86.73 Personal history of transient ischemic attack (TIA), and cerebral infarction without residual deficits; Z82.3 Family history of stroke; Z79.82 Long term (current) use of aspirin; Z82.49 Family history of ischemic heart disease and other diseases of the circulatory system; Z87.891 Personal history of nicotine dependence; Z90.710 Acquired absence of both cervix and uterus; Z95.0 Presence of cardiac pacemaker; Z95.1 Presence of aortocoronary bypass graft; Z83.3 Family history of diabetes mellitus; Z60.2 Problems related to living alone; Z68.37 Body mass index [BMI] 37.0-37.9, adult; I10 Essential (primary) hypertension; K22.2 Esophageal obstruction; E03.9 Hypothyroidism, unspecified
CPT/HCPCS: 36415; 70450; 70551; 71045; 80048; 80061; 82607; 82962; 84443; 85027; 85610; 85730; 93005; G0378; G0379; J3420; 97530; 99285-25